=== PATIENT | male | born 2000 | race Caucasian/White ===

== ENCOUNTER 2022-02-17 23:45 | Emergency (ER) | payer OTHER, SELFPAY ==
[2022-02-17 23:47] VITALS: BP 143/73; PULSE 85; RESP 20; TEMP 36.7; O2SAT 100
--- NOTE | 2022-02-18 00:24 | ED.WOUNDLAC ---
HPI - Wound/Laceration General Chief Complaint: Wound/Laceration Stated Complaint: left wrist laceration accidental Time Seen by Provider: 02/18/22 00:03 History of Present Illness HPI narrative: Patient is a 22-year-old male who presents ER with 2 superficial lacerations to the left forearm over the medial aspect superficial and about 2 cm in length each. They go to a tattoo. Bleeding controlled. Tetanus updated 6 to 7 years ago. He cut it on a dumpster while throwing away trash. No numbness or tingling to the hand. No functional deficit Related Data Allergies Allergy/AdvReac Type Severity Reaction Status Date / Time No Known Allergies Allergy Verified 05/19/19 23:33 Review of Systems Integumentary/Breasts: Skin/Breast: Denies erythema and Denies rash Comments: Laceration Neurologic: Denies focal weakness and Denies numbness PMFSH Past Medical History Medical History (Updated 02/18/22 @ 00:56 by Zoltan Toledo MD) Asthma Bronchiolitis Croup Ear infection Pneumonia Surgical History Surgical History (Updated 05/19/19 @ 23:14 by Tiana Hernandez) History of appendectomy Social History Social History (Updated 05/19/19 @ 23:15 by Tiana Hernandez) Smoking packs per day: 1 Smoking cigarettes per day: 20.0 Smoking status: Current every day smoker Second hand tobacco smoke exposure: Yes Substance use type: marijuana Exam Narrative: GENERAL: Well-appearing, well-nourished, and in no acute distress. HEAD: Normocephalic, atraumatic. EXTREMITIES: Normal range of motion. No edema. SKIN: Warm, dry, no rash. 2 superficial lacerations left forearm 1 measuring 1.5 cm and the other measuring 2 cm, 3 mm separation. NEURO: Alert and oriented x3. PSYCH: Normal mood and affect. Course Course Emergency Course: We will suture the laceration given the fact that they go through tattoos so that he can have the images lined up properly and securely. Tetanus updated. Vital Signs Vital signs: Vital Signs Temperature 98.0 F 02/17/22 23:47 Pulse Rate 85 02/17/22 23:47 Respiratory Rate 20 02/17/22 23:47 Blood Pressure 143/73 H 02/17/22 23:47 Pulse Oximetry 100 02/17/22 23:47 Oxygen Delivery Room Air 02/17/22 23:47 Temperature 98.0 F 02/17/22 23:47 Pulse Rate 85 02/17/22 23:47 Respiratory Rate 20 02/17/22 23:47 Blood Pressure 143/73 H 02/17/22 23:47 Pulse Oximetry 100 02/17/22 23:47 Oxygen Delivery Room Air 02/17/22 23:47 Procedures Laceration Laceration 1: Date: 02/18/22 Time: 00:55 Site: upper extremity Side (If applicable): left Size (cm): 1.5 Description: linear and clean Depth: simple, single layer Local Anesthetic: lidocaine 1% and with epi Amount of anesthesia used (mL): 1 Pre-repair: irrigated ====== Skin Level ====== Skin layer closed with: nylon Size (cm): 5-0 Number of sutures: 3 Technique: simple, interrupted ====== Subcutaneous Layer ====== ====== Muscle Layer ====== ====== Tendon Layer ====== Laceration 2: Date: 02/18/22 Time: 00:52 Site: upper extremity Side (If applicable): left Size (cm): 2 Description: linear and clean Depth: simple, single layer Local Anesthetic: lidocaine 1% and with epi Amount of anesthesia used (mL): 2 Pre-repair: irrigated ====== Skin Level ====== Skin layer closed with: nylon Size (cm): 5-0 Number of sutures: 4 Technique: simple, interrupted ====== Subcutaneous Layer ====== ====== Muscle Layer ====== ====== Tendon Layer ====== Discharge Plan Discharge Clinical Impression: Laceration Patient Disposition: Home, Self-Care Condition: Stable Instructions: Care For Your Stitches (ED) Additional Instructions: Remove your sutures in 7 days. Return to the ER if your arm
[2022-02-18] MEDS: TETANUS,DIPHTHERIA,AC PERTUSSIS ADULT (0.5 ML) BOOSTRIX IM (01:03)
== END 2022-02-18 01:15 | disposition home or self-care (01) ==
PROVIDERS: Emergency Provider Emergency Medicine
DX: S51.812A Laceration without foreign body of left forearm, initial encounter (principal); Z23 Encounter for immunization; J45.909 Unspecified asthma, uncomplicated; Z87.01 Personal history of pneumonia (recurrent); F17.210 Nicotine dependence, cigarettes, uncomplicated; W26.8XXA Contact with other sharp object(s), not elsewhere classified, initial encounter
CPT/HCPCS: 12002; 90471; 90715; 99283

== ENCOUNTER 2023-03-17 14:58 | Emergency (ER) | payer OTHER, SELFPAY ==
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
[2023-03-17 14:59] VITALS: BP 141/68; PULSE 98; RESP 20; TEMP 37; O2SAT 100
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
== END 2023-03-17 16:10 | disposition home or self-care (01) ==
PROVIDERS: Emergency Provider Physician Assistant
DX: S16.1XXA Strain of muscle, fascia and tendon at neck level, initial encounter (principal); S20.219A Contusion of unspecified front wall of thorax, initial encounter; S29.012A Strain of muscle and tendon of back wall of thorax, initial encounter; J45.909 Unspecified asthma, uncomplicated; Z87.01 Personal history of pneumonia (recurrent); F17.210 Nicotine dependence, cigarettes, uncomplicated; J43.9 Emphysema, unspecified; M47.814 Spondylosis without myelopathy or radiculopathy, thoracic region; V49.40XA Driver injured in collision with unspecified motor vehicles in traffic accident, initial encounter
CPT/HCPCS: 71250; 72125; 72128; 99284

== ENCOUNTER 2024-02-26 14:17 | Emergency (ER) | payer SELFPAY ==
[2024-02-26 14:26] VITALS: BP 145/84; PULSE 90; RESP 18; TEMP 36.9; O2SAT 98
--- NOTE | 2024-02-26 14:42 | ED.BACK ---
HPI - Back Pain/Injury General Chief Complaint: Back Pain/Injury Stated Complaint: Back Pain Time Seen by Provider: 02/26/24 14:42 Source: patient, RN notes reviewed and old records reviewed Mode of arrival: ambulatory Limitations: no limitations History of Present Illness HPI Narrative: 24-year-old male presents to the [facility] with a right upper mid back pain since pushing and pulling on a couch over the weekend to rescue a kitten. Related Data Allergies Allergy/AdvReac Type Severity Reaction Status Date / Time No Known Allergies Allergy Verified 02/26/24 14:33 Review of Systems Review of Systems: All systems reviewed & are unremarkable except as noted in HPI and below Constitutional: Constitutional: Reports no additional constitutional complaints Eyes: Eyes: Reports no additional eye complaints ENT: Reports system reviewed and no additional complaints, except as documented Cardiovascular: Cardiovascular: Reports no additional cardiovascular complaints, Denies chest pain and Denies dyspnea Respiratory: Respiratory: Reports no additional respiratory complaints, Denies chest congestion, Denies cough and Denies dyspnea Gastrointestinal: Gastrointestinal: Reports no additional gastrointestinal complaints, Denies abdominal pain, Denies nausea and Denies vomiting Musculoskeletal: Musculoskeletal: Reports as per HPI Integumentary/Breasts: Skin/Breast: Reports system reviewed and no additional complaints, except as docu Neurologic: Reports system reviewed and no additional complaints, except as documented Psychiatric: Psychiatric: Reports no additional psychiatric complaints Allergic/Immunologic: Allergic/Immunologic: Reports no additional allergic/immunologic complaints PMFSH Past Medical History Medical History Asthma Bronchiolitis Croup Ear infection Pneumonia Surgical History Surgical History History of appendectomy Social History Social History Smoking packs per day: 1 Smoking cigarettes per day: 20.0 Smoking status: Current every day smoker Second hand tobacco smoke exposure: Yes Substance use type: marijuana Comments At the time of my signature, I reviewed and agree with the nursing past medical, surgical, social, and family history. There is no relevant family history pertinent to the patient complaint. Exam Const: General: cooperative, healthy appearing, comfortable, no acute distress, well developed, alert and well nourished Nutritional Appearance: well nourished Orientation/consciousness: patient oriented x3 Limitations: no limitations HENMT: Head: normal to inspection Ears: hearing grossly normal bilaterally and external ears normal Face/Nose/Sinus: Normal external nose present, Normal nares present, Normal nasal mucous membranes and turbinates present, normal facial exam and face symmetric Face and sinus: normal facial exam and face symmetric Eyes: General: appearance normal, both eyes and all related structures Alignment and Position: alignment normal Periorbital: periorbital findings normal Neck: Neck: normal visual inspection, full ROM, no lymphadenopathy and no meningeal signs Chest: Chest palpation & inspection: normal inspection of the chest Resp: Effort & Inspection: normal respiratory effort and able to speak in complete sentences Auscultation: clear to auscultation bilaterally, no crackles, no rales, no rhonchi and no wheezes Cardio: Rate: regular rate Back/Spine/Pelvis: Back: no CVA tenderness, No ecchymosis and back tenderness (Right scapular area worse with movement) Thoracic/Lumbar Spine: No thoracic spinal tenderness and No lumbar spinal tenderness Skin: General skin exam: normal color and no rashes or lesions noted Lesions: no lesions Rashes: no rashes Trauma: no lacerations or abrasions Wounds
== END 2024-02-26 15:05 | disposition home or self-care (01) ==
PROVIDERS: Emergency Provider Nurse Practitioner
DX: S29.012A Strain of muscle and tendon of back wall of thorax, initial encounter (principal); X50.0XXA Overexertion from strenuous movement or load, initial encounter; J45.909 Unspecified asthma, uncomplicated; F17.210 Nicotine dependence, cigarettes, uncomplicated
CPT/HCPCS: 99213; G0463

== ENCOUNTER 2024-07-16 08:14 | Emergency (ER) | payer SELFPAY ==
--- NOTE | 2024-07-16 08:19 | ED.URI ---
HPI - URI/Sore Throat General Chief Complaint: Upper Respiratory Infection Stated Complaint: Bodyaches/Sinus Source: patient and RN notes reviewed Mode of arrival: ambulatory Limitations: no limitations History of Present Illness HPI Narrative: 24 y/o male presented for c/o body aches, sinus congestion, cough, n/v/d/f/c. Onset 2 days. Denies sob, wheezing. Taking Nyquil and Darline [place]. Pt is able to tolerate fluids. MD elicited complaint: cough Related Data Home Medications ?Medication ?Instructions ?Recorded ?Confirmed ?Last Taken ?Type No Home Medications 07/16/24 Unknown History Allergies Allergy/AdvReac Type Severity Reaction Status Date / Time No Known Allergies Allergy Verified 07/16/24 08:16 Review of Systems Review of Systems: CONSTITUTIONAL: Endorses malaise, chills, sweats, fever EYES: Denies visual changes, redness, or discharge ENT: Reports rhinorrhea, congestion, otalgia, sore throat CARDIOVASCULAR: Denies chest pain, palpitations, edema RESPIRATORY: Reports cough, post nasal drainage. Denies dyspnea GASTROINTESTINAL: Denies abdominal pain, reports nausea, vomiting, diarrhea MUSCULOSKELETAL: Endorses myalgia PMFSH Past Medical History Medical History Pneumonia Croup Bronchiolitis Asthma Ear infection Surgical History Surgical History History of appendectomy Social History Social History Smoking packs per day: 1 Smoking cigarettes per day: 20.0 Smoking status: Current every day smoker Second hand tobacco smoke exposure: Yes Substance use type: marijuana Exam Narrative: GENERAL: Ill-appearing, nontoxic no acute distress. HEAD: Normocephalic EYES: PERRLA, conjunctivae clear ENT: Mucous membranes moist. TM pearly carey with dull light reflex bilaterally; no tragal tenderness. Oropharynx erythematous without lesions or exudate, no drooling, no hoarseness, no trismus, uvula midline. No tripod positioning, muffled voice, soft palate or pharyngeal wall bulging NECK: Supple. No lymphadenopathy CHEST: Clear to auscultation, breath sounds equal. No wheezing, rhonchi, rales, or stridor. No respiratory distress, speaks in full sentences. HEART: Regular rate and rhythm. No murmur heard. SKIN: Warm, dry, no rash. NEURO: Alert and oriented x3. PSYCH: Normal mood and affect Course Course Emergency Course: Patient is aware of diagnosis, understands and agrees to treatment plan. Anticipatory guidance given. Patient agrees to follow-up as directed and is aware of reasons to seek care at the emergency department. Portions of this record may have been created with voice recognition software Level of Care: Express Care Visit Vital Signs Vital signs: reviewed MDM - URI/Sore Throat MDM Narrative Medical decision making narrative: POS flu. Discussed physical exam findings. Advised supportive measures and signs/symptoms to go to the ER. Pt is appropriate for outpt treatment and f/u. Differential Diagnosis Differential diagnosis: Likely upper respiratory infection, sinusitis, viral infection, bronchitis and influenza Discharge Plan Discharge Clinical Impression: Influenza Patient Disposition: Home, Self-Care Condition: Stable Instructions: Antibiotic Form, Influenza (ED) Additional Instructions: Influenza positive You should avoid crowds until you are fever free for 24 hours without the use of fever reducing medications, or the symptoms are improved Rest. Drink plenty of fluids. Tylenol 1000mg every 8 hours as needed for pain/fever Recommend Flonase spray and Zyrtec (or Claritin/[place]) for sinus pressure/congestion over the counter Cough syrup may cause drowsiness; avoid driving or take it at night time. Follow up with your primary care provider as needed Go to the ER for worsening symptoms or concerns Patient Language: Djiboutian Prescriptions: No Action No Home Medications Follow-up/Referrals: PHYSICIAN,PRECISION CROP MANAGER [Primary Care Provider] - Stand Alone Forms: Work/School Release IP Time of Disposition: 08:41
[2024-07-16 08:20] VITALS: BP 133/79; PULSE 118; RESP 20; TEMP 38.2; O2SAT 98
[2024-07-16 08:41] LABS: EDCOVIDSCREEN Negative (Negative); EDINFLUASCREEN Positive (Negative); EDINFLUBSCREEN Negative (Negative)
== END 2024-07-16 08:45 | disposition home or self-care (01) ==
PROVIDERS: Emergency Provider Nurse Practitioner Family
DX: J10.1 Influenza due to other identified influenza virus with other respiratory manifestations (principal); Z20.822 Contact with and (suspected) exposure to COVID-19; F17.210 Nicotine dependence, cigarettes, uncomplicated; F12.90 Cannabis use, unspecified, uncomplicated; J45.909 Unspecified asthma, uncomplicated
CPT/HCPCS: 87426; 87804; 99212; G0463

== ENCOUNTER 2024-11-29 07:26 | Emergency (ER) | payer OTHER, SELFPAY ==
--- NOTE | ~2024-11-29 | XR_ITS ---
XR shoulder RT min 2V Ordering provider: Hector Chong MD History: . shoulder pain . Comparison: None. FINDINGS: BONES: No acute fracture or dislocation. JOINT SPACES: The acromioclavicular joint is normal. The glenohumeral joint is normal. SOFT TISSUES: Normal. IMPRESSION: No acute osseous abnormality right shoulder. Reviewed, dictated and finalized at location A.
--- OUTSIDE RECORDS SUMMARY | 2024-11-29 07:30 | XMS_ITS | CONTINUITY OF CARE DOCUMENT ---
Author Name luci verma Address Unknown Organization [facility] Address [address] [place] [address] Phone [phone] Care Team Providers Care Bomb Squad Officer Name Role Phone Cayetano Willoughby MD Unavailable INSURANCE PROVIDERS Payer name Policy type / Coverage type Rob red libertarian ID [id number] MEDICAID (2) Medicaid [id number]
--- OUTSIDE RECORDS SUMMARY | 2024-11-29 07:30 | XMS_ITS | Clinical Summary ---
Author Organization [facility] [employer] Address [address] [place] [address] Care Team Providers Care Lightout Examiner Name Role Phone Meka Levine MD Primary Care Provider Source Comments [facility],non-owned Affiliates and Associated Physician Practices is amultiple site organization consisting of ambulatory clinics and hospital sitesin [place], [place], [place] and [place]. This disclosure is being madepursuant to the Care Everywhere program and may not contain all information available regarding this patient. Last updated 18.[facility] [employer] Allergies Active Allergy Reactions Criticality Noted Date Comments Bee Venom Rash Medium 05/20/2019 Medications * Be aware that medications may not be up to date on this document. Alwaysverify current medications with the patient. albuterol HFA (PROVENTIL;JOIE [place];PROAIR) 108 (90 BASE) MCG/ACT inhaler Inhale 2 Puffs by mouth every 6 hours as needed. 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 Family History Medical History Relation Name Comments Negative Family History Other Relation Name Status Comments Other Social History Tobacco Use Types Packs/Day Years Used Date Smoking Tobacco: Every Day Cigarettes Smokeless Tobacco: Never Alcohol Use Standard Drinks/Week Comments Yes 0 (1 standard drink = 0.6 oz pur e alcohol) rarely Sex and Gender Information Value Date Recorded Sex Assigned at Not on file 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 Gender Identity Not on file Sexual Orientation Not on file Last Filed Vital Signs Vital Sign Reading Time Taken Comments Blood Pressure 107/91 03/03/2023 4:03 PM CDT Pulse 121 03/03/2023 4:03 PM CDT Temperature 37 C (98.6 F) 03/03/2023 4:03 PM CDT Respiratory Rate 16 03/03/2023 4:03 PM CDT Oxygen Saturation 97% 03/03/2023 4:03 PM CDT Inhaled Oxygen Concentration - - Weight 90.7 kg (200 lb) 03/03/2023 4:03 PM CDT Height 167.6 cm (5' 6) 03/03/2023 4:03 PM CDT Body Mass Index 32.28 03/03/2023 4:03 PM CDT Plan of Treatment Health Maintenance Due Date Last Done Comments HIV SCREENING 2014 HPV VACCINE (1 - Male 3-dose series) 2014 HEPATITIS C SCREENING 02/13/2017 DTAP/TDAP/TD VACCINES (1 - Tdap) 2018 HEPATITIS B VACCINE (1 of 3 - 19+ 3-dose series) 2018 PNEUMOCOCCAL VACCINE (1 of 2 - PCV) 2018 COVID-19 VACCINE (1 - 2023-2 5 season) 2024 DEPRESSION SCREENING 06/15/2024 INFLUENZA VACCINE (Season Ended) 2025 06/19/19 12 ZOSTER VACCINE (1 of 2) 2049 HIB VACCINE Aged Out No longer eligi ble based on patient's age to complete this topic MENINGOCOCCAL (Group B) VACC INE SHARED DECISION-MAKING Aged Out No longer eligibl e based on patient's age to complete this topic MENINGOCOCCAL GROUPS A/C/Y/W VACCINE Aged Out No longer eligible b ased on patient's age to complete this topic Medical Devices Implanted Type Area Terrazzo Tile Maker Device Identifier Shelf Expiration Date Model / Serial / Lot Wire K 1.1mm Implanted:Qty: 1 on 09/15/2014 by Brock Whitfield MD at [facility] Right: Hand [employer] 07/15/2018 [id number] / / [id number] Description:Right fourth met acarpal. Care Teams Lightout Examiner Relationship Specialty Start Date End Date Meka Levine MD PCP - General Pediatrics 09/30/13
[2024-11-29 07:33] VITALS: BP 118/75; PULSE 108; RESP 18; TEMP 36.6; O2SAT 100
--- OUTSIDE RECORDS SUMMARY | 2024-11-29 07:49 | XMS_ITS | CONTINUITY OF CARE DOCUMENT ---
Author Name luci verma Address Unknown Organization [facility] Address [address] [place] [address] Phone [phone] Care Team Providers Care Brim Curler Name Role Phone Cayetano Willoughby MD Unavailable [phone] INSURANCE PROVIDERS Payer name Policy type / Coverage type Rob red alliance party ID [id number] MEDICAID (2) Medicaid [id number]
--- NOTE | 2024-11-29 08:33 | ED.GENADULT ---
HPI - General Adult General Chief complaint: Extremity Injury, Upper Stated complaint: right shoulder injury Time Seen by Provider: 11/29/24 07:34 History of Present Illness HPI narrative: Patient 24-year-old gentleman presents emergency department chief complaint of right shoulder pain. Patient reports that he was trying to open a door last reports that he started shoulder patient reports that he has had pain with range of motion and reports that has not been getting better. Patient denies motor weakness reports that he is currently not having any numbness or tingling patient reports no deformity reports the pain does show her to into the shoulder blade area is worse with movement Related Data Allergies Allergy/AdvReac Type Severity Reaction Status Date / Time No Known Allergies Allergy Verified 07/16/24 08:16 Review of Systems Review of Systems: A 10 system review of systems was completed on the patient and is negative except for what is stated in the HPI. Nursing and ancillary documentation was reviewed. [facility] Past Medical History Medical History Pneumonia Croup Bronchiolitis Asthma Ear infection Surgical History Surgical History History of appendectomy Social History Social History Smoking packs per day: 1 Smoking cigarettes per day: 20.0 Smoking status: Current every day smoker Second hand tobacco smoke exposure: Yes Substance use type: marijuana Exam Narrative: GENERAL: Well-appearing, well-nourished, and in no acute distress. HEAD: Normocephalic, atraumatic. EYES: PERRLA and EOMI. ENT: Nares clear, no rhinorrhea or epistaxis. Mucous membranes moist. NECK: Supple. CHEST: Clear to auscultation. No respiratory distress. HEART: Regular rate and rhythm. No murmur heard. Normal peripheral pulses. ABDOMEN: Soft, nontender, nondistended, normal active bowel sounds. EXTREMITIES: Normal range of motion tenderness to palpation the shoulder area on the right side no deformity passive and active range of motion present. No edema. SKIN: Warm, dry, no rash. NEURO: No focal deficits. Alert and oriented x3. PSYCH: Normal mood and affect. Course Vital Signs Vital signs: Vital Signs Temperature 36.6 C 06/17/25 07:33 Pulse Rate 108 H 11/29/24 07:33 Respiratory Rate 18 11/29/24 07:33 Blood Pressure 118/75 11/29/24 07:33 Pulse Oximetry 100 11/29/24 07:33 Oxygen Delivery Room Air 11/29/24 07:33 Temperature 36.6 C 11/29/24 07:33 Pulse Rate 108 H 11/29/24 07:33 Respiratory Rate 18 11/29/24 07:33 Blood Pressure 118/75 11/29/24 07:33 Pulse Oximetry 100 11/29/24 07:33 Oxygen Delivery Room Air 11/29/24 07:33 Medical Decision Making MDM Narrative Medical decision making narrative: Initial diagnosis includes fracture, sprain, strain, dislocation Plain film x-rays of the right shoulder showed no evidence of dislocation no evidence of fracture Patient was started on anti-inflammatories and a muscle relaxer. Vital Signs Vital Signs: Vital Signs Temperature 36.6 C 11/29/24 07:33 Pulse Rate 108 H 11/29/24 07:33 Respiratory Rate 18 11/29/24 07:33 Blood Pressure 118/75 11/29/24 07:33 Pulse Oximetry 100 11/29/24 07:33 Oxygen Delivery Room Air 11/29/24 07:33 Temperature 36.6 C 11/29/24 07:33 Pulse Rate 108 H 11/29/24 07:33 Respiratory Rate 18 11/29/24 07:33 Blood Pressure 118/75 11/29/24 07:33 Pulse Oximetry 100 11/29/24 07:33 Oxygen Delivery Room Air 11/29/24 07:33 Discharge Plan Discharge Clinical Impression: Sprain of shoulder, right Patient Disposition: Home Condition: Stable Instructions: Antibiotic Form, Shoulder Sprain (ED) Patient Language: Qatari Prescriptions: New diclofenac potassium 50 mg tablet 50 mg PO TID PRN (Reason: pain) Qty: 30 0RF cyclobenzaprine 10 mg tablet 10 mg PO TID PRN (Reason: muscle spasm) Qty: 21 0RF Follow-up/Referrals: Go Steinberg MD [Physician] - UNKNOWN,DOCTOR [Primary Care Provider] - Time of Disposition: 08:36
[2024-11-29] MEDS: IBUPROFEN 400 MG TABLET 800 MG PO (08:40)
== END 2024-11-29 08:54 | disposition home or self-care (01) ==
PROVIDERS: Emergency Provider Emergency Medicine
DX: S43.401A Unspecified sprain of right shoulder joint, initial encounter (principal); J45.909 Unspecified asthma, uncomplicated; F17.210 Nicotine dependence, cigarettes, uncomplicated; Z87.01 Personal history of pneumonia (recurrent); X50.9XXA Other and unspecified overexertion or strenuous movements or postures, initial encounter
CPT/HCPCS: 73030; 99283; A9270

== ENCOUNTER 2025-05-01 15:51 | Emergency (ER) | payer SELFPAY ==
--- NOTE | 2025-05-01 15:52 | ED.CHESTPAIN ---
HPI - Chest Pain General Chief Complaint: Chest Pain Stated Complaint: Chest Pain Time Seen by Provider: 05/01/25 15:52 Source: patient Mode of arrival: ambulatory Limitations: no limitations History of Present Illness HPI narrative: Layo is a 25 year old male patient presenting to the clinic today with c/o left-sided chest pain that radiates into his left side neck and left arm. States he was sitting in his car/at work when his symptoms started. States pain is sharp and stabbing. Rates pain 8/10. Symptoms started approximately 1 hour [employer]. Does have some associated shortness of breath-is hyperventilating respirations 24-26 per minute. He has not taken any medications for his symptoms. History of anxiety, cardiac murmur, and asthma. He does smoke marijuana and vapes nicotine. Related Data Allergies Allergy/AdvReac Type Severity Reaction Status Date / Time No Known Allergies Allergy Verified 07/16/24 08:16 Review of Systems Review of Systems: Pertinent positives per HPI. Patient denies any fever, chills, rash, headache, visual changes, dizziness, cough, runny nose, sore throat, shortness of breath, chest pain, palpitations, nausea, vomiting, diarrhea, constipation, abdominal pain, or any urinary issues. [facility] Past Medical History Medical History Pneumonia Croup Bronchiolitis Asthma Ear infection Surgical History Surgical History History of appendectomy Social History Social History Smoking packs per day: 1 Smoking cigarettes per day: 20.0 Smoking status: Current every day smoker Second hand tobacco smoke exposure: Yes Substance use type: marijuana Comments At the time of my signature, I reviewed and agree with the nursing past medical, surgical, social, and family history. There is no relevant family history pertinent to the patient complaint. Exam Narrative: General: Well-developed, well nourished, in no apparent distress Head: Normocephalic, atraumatic. Cardio: Regular rate and rhythm, s1 and s2 normal, no murmur appreciated. Resp: Clear to auscultation bilaterally, no rhonchi, rales, wheezing or rubs. Extremities: No deformity, no edema, no cyanosis, capillary refill less than 2 seconds, peripheral pulses palpable and strong. Integumentary: [place], warm, and dry, intact without lesion, no rashes. Course Course Emergency Course: Portions of this record may have been created with voice recognition software. Level of Care: Express Care Visit Vital Signs Vital signs: Vital Signs Temperature 36.9 C 05/01/25 15:59 Pulse Rate 83 05/01/25 15:59 Respiratory Rate 24 H 05/01/25 15:59 Blood Pressure 141/93 H 05/01/25 15:59 Pulse Oximetry 100 05/01/25 15:59 Oxygen Delivery Room Air 05/01/25 15:59 Temperature 36.9 C 05/01/25 16:02 Pulse Rate 84 05/01/25 16:02 Respiratory Rate 26 H 05/01/25 16:02 Blood Pressure 141/93 H 05/01/25 16:02 Pulse Oximetry 100 05/01/25 16:02 Oxygen Delivery Room Air 05/01/25 15:59 Vital signs reviewed Transfer Transfered to: [place] Transportation: Other (private car) Transfer rationale: Chest pain- higher level of care Accepting physician: Dr. Rascon Transfer comments: [facility] MDM - Chest Pain MDM Narrative Medical decision making narrative: At the time of visit patient is resting comfortably on the exam table. Patient appears to be nontoxic. C/o left-sided chest pain that radiates into his left side neck and left arm. States he was sitting in his car/at work when his symptoms started. States pain is sharp and stabbing. Rates pain 8/10. Symptoms started approximately 1 hour prior to arrival. Does have some associated shortness of breath-is hyperventilating respirations 24-26 per minute. History of anxiety, cardiac murmur, and asthma. He does smoke marijuana and vapes nicotine. On exam patient hyperventilating-redirected to be slower in through his nose and out through his mouth. Color is pink, warm, and dry, lung sounds are clear, rates regular rate and rhythm, no edema. No audible heart murmur, EKG and aspirin 324 mg ordered. [facility] notified. EKG: EKG shows sinus rhythm with a heart rate of 84 beats per minute without ST elevation or depression. Medications: 4 chewable baby aspirins (324mg) were given in the clinic today Plan: Recommend transfer to the ER for further evaluation. Patient is agreeable to transfer. Patient would like to go to [place] [facility]. EMS was notified and 4 baby aspirins were given. Report called to Dr. Rascon at [place] [facility] and he accepts patient for transfer. Differential Diagnosis Differential diagnosis: Likely fracture of rib, pneumothorax, stable angina, unstable angina pectoris, atypical chest pain, st elevation myocardial infarction, costochondritis and chest pain ECG Data EKG #1: Attestation: I personally reviewed and interpreted this ECG as follows: ECG completion date: 05/01/25 ECG completion time: 15:59 Prior ECG tracings: not available for review Interpretation: EKG shows sinus rhythm with heart rate of 84 beats per minute. No ST elevation or depression noted. PA interval is 120 milliseconds, QRS durations 98 milliseconds, QT-QTC is 334-375 milliseconds, P-R-T axis is 26 51 29 Discharge Plan Discharge Clinical Impression: Chest pain Qualifiers: Chest pain type: unspecified Qualified Code(s): R07.9 - Chest pain, unspecified Patient Disposition: Acute Care Hospital Condition: Stable Patient Language: Cam[place]onian Follow-up/Referrals: UNKNOWN,DOCTOR [Non-Staff] Time of Disposition: 16:07 Quality NIHSS Nursing Documentation ED NIHSS nursing documentation: reviewed/agree
[2025-05-01 15:59] VITALS: BP 141/93; PULSE 83; RESP 24; TEMP 36.9; O2SAT 100
--- NOTE | 2025-05-01 16:00 | ECG_ITS ---
Test Date: 2025-05-01 15:59:19 Measurements Intervals [place] Rate: 84 P: 26 [place]: 120 QRS: 51 QRSD: 98 T: 29 QT: 334 QTc: 395 Interpretive Statements SINUS RHYTHM POSSIBLE RIGHT VENTRICULAR CONDUCTION DELAY Electronically Signed On 05-01-2025 20:04:04 REPOSSESSION AGENT by Jonathan Farrar D.O
[2025-05-01 16:02] VITALS: BP 141/93; PULSE 84; RESP 26; TEMP 36.9; O2SAT 100
[2025-05-01] MEDS: ASPIRIN 81 MG CHEWABLE TABLET 324 MG PO (16:12)
== END 2025-05-01 16:19 | disposition short-term general hospital (02) ==
PROVIDERS: Emergency Provider Nurse Practitioner Family
DX: R07.9 Chest pain, unspecified (principal); F17.290 Nicotine dependence, other tobacco product, uncomplicated; F17.210 Nicotine dependence, cigarettes, uncomplicated; F12.90 Cannabis use, unspecified, uncomplicated; J45.909 Unspecified asthma, uncomplicated; R01.1 Cardiac murmur, unspecified
CPT/HCPCS: 93005; 99215; A9270; G0463

== ENCOUNTER 2025-05-01 16:29 | Emergency (ER) | payer SELFPAY ==
--- NOTE | ~2025-05-01 | XR_ITS ---
EXAMINATION: XR chest 2V DATE: 05/01/2025 17:00 INDICATION: Chest pain, shortness of breath. TECHNIQUE: Frontal and lateral views of the chest were obtained. COMPARISON: Chest x-ray dated 05/19/2019. FINDINGS: Heart size is normal. Lungs are clear of acute processes. Vee and mediastinum are normal. IMPRESSION: 1. No acute cardiopulmonary findings. Reviewed, dictated and finalized at location T. [employer]
--- NOTE | 2025-05-01 16:32 | ECG_ITS ---
Test Date: 2025-05-01 16:46:44 Measurements Intervals [place] Rate: 75 P: 26 DC: 119 QRS: 58 QRSD: 106 T: 46 QT: 357 QTc: 401 Interpretive Statements SINUS RHYTHM WITH SHORT DC INTERVAL POSSIBLE RIGHT VENTRICULAR CONDUCTION DELAY Electronically Signed On 05-01-2025 20:04:43 HYDROLOGIST by Jonathan Farrar D.O
[2025-05-01 16:43] LABS: Hematocrit 38.1 % (42.0-52.0); Hemoglobin 13.0 g/dL (14.0-18.0); Immature Granulocyte Percent A 0.3 % (0-0.5); Lymphocytes Absolute Auto 4.18 K/mm3 (0.9-3.2); Mean Corpuscular HGB Conc 34.1 g/dl (32-36); Mean Corpuscular Hemoglobin 31.9 pg (26-34); Mean Corpuscular Volume 93.4 fl (80-100); Nucleated Red Blood Cells Absolute Auto 0.000 K/mm3 (0.0-0.012); Nucleated Red Blood Cells Perc 0.0 % (0.0-0.2); Platelet Count Result 304 k/mm3 (150-375); Red Blood Count 4.08 M/mm3 (4.6-6.20); White Blood Count 9.4 K/mm3 (4.5-10.0)
[2025-05-01 16:45] VITALS: BP 137/87; PULSE 77; RESP 22; TEMP 36.8; O2SAT 100
[2025-05-01 16:54] LABS: INR 1.0; Prothrombin Time 13.6 Seconds (11.1-14.7)
[2025-05-01 16:55] LABS: Partial Thromboplastin Time 29.2 Seconds (22.3-36.8)
[2025-05-01 16:58] LABS: Alanine Aminotransferase 17 U/L (6-50); Albumin Level 4.5 g/dL (3.5-5.1); Alkaline Phosphatase 77 U/L (38-126); Anion Gap 8 mmol/L (4-12); Aspartate Amino Transferase 23 U/L (17-59); Bilirubin,Total 0.3 mg/dL (0.2-1.3); Blood Urea Nitrogen 10 mg/dL (9-20); Calcium 9.3 mg/dL (8.4-10.2); Carbon Dioxide 25 mmol/L (22-30); Chloride 103 mmol/L (98-107); Estimated CRCL calculation 119 ml/min; Estimated Glomerular Filt Rate > 60; Glucose 100 mg/dL (65-110); Lipase 96 U/L (23-300); Potassium 3.6 mmol/L (3.4-5.0); Sodium 136 mmol/L (137-145); Total Protein 7.6 g/dL (6.3-8.2)
[2025-05-01 17:10] LABS: Troponin I < 0.012 ng/mL (0.000-0.034)
--- NOTE | 2025-05-01 19:59 | PC.NURSE ---
Pt. call x1 in [facility] with no reply.
--- NOTE | 2025-05-01 20:53 | PC.NURSE ---
Pt call x2 in [facility] with no reply.
== END 2025-05-01 21:50 | disposition left against medical advice (07) ==
PROVIDERS: Emergency Provider Emergency Medicine
DX: R07.9 Chest pain, unspecified (principal)
CPT/HCPCS: 36415; 71046; 80053; 83690; 84484; 85025; 85610; 85730; 93005; 99199